=== PATIENT | male | born 1995 | race Hispanic/Latino ===

== ENCOUNTER 2022-02-23 15:16 | Emergency (ER) | payer OTHER, BC, SELFPAY ==
--- NOTE | ~2022-02-23 | XR_ITS ---
XR knee LT 3V 02/23/2022 17:03 Indication: Left knee pain and swelling Procedure: 3 views left knee Comparison: No prior studies for comparison. Findings: There is a possible tibial plateau fracture no other fracture is seen. No foreign bodies. L arge joint effusion. There is anatomic alignment. Impression: 1: Possible tibial plateau fracture. Recommend correlation with CT. 2: Large joint effusion. Reviewed, dictated and finalized at location A. Impression: 1: Possible tibial plateau fracture. Recommend correlation with CT. 2: Large joint effusion.
[2022-02-23 15:18] VITALS: BP 132/109; PULSE 84; RESP 18; TEMP 36.8; O2SAT 100
--- NOTE | 2022-02-23 16:26 | ED.LOWEXIN ---
HPI - Extremity Injury (Lower) General Chief Complaint: Extremity Injury, Lower Stated Complaint: left knee injury Time Seen by Provider: 02/23/22 16:18 History of Present Illness HPI Narrative: 26 y/o male presents to the ER today for complaints of left knee pain and swelling. He stepped on uneven surface 2 days ago and his knee twisted and he fell. He was seen at an ER in [place]. Xray was done that showed a tibial plateau fracture. A CT was also done that showed the fracture and was concerning for ACL injury and large joint effusion/hemorrhage. He was not able to get in with the ortho that they told him to see because they did not take his insurance. He is needing help getting into an ortho provider for follow up. He has been taking ibuprofen with minimal pain relief. Related Data Allergies Allergy/AdvReac Type Severity Reaction Status Date / Time No Known Allergies Allergy Verified 02/23/22 16:12 Review of Systems Constitutional: Constitutional: Denies chills and Denies fever(s) Eyes: Eyes: Reports no additional eye complaints ENT: Denies dysphagia, Denies dizziness and Denies sore throat Cardiovascular: Cardiovascular: Denies chest pain Respiratory: Respiratory: Denies chest congestion, Denies cough, Denies dyspnea and Denies wheezing Gastrointestinal: Gastrointestinal: Denies abdominal pain, Denies diarrhea, Denies nausea and Denies vomiting Genitourinary: Genitourinary: Reports no additional male genitourinary complaints Musculoskeletal: Musculoskeletal: Reports arthralgias and Reports joint swelling Integumentary/Breasts: Skin/Breast: Denies rash Neurologic: Denies vertigo, Denies dizziness, Denies syncope, Denies headache(s), Denies focal weakness and Denies numbness Psychiatric: Psychiatric: Denies anxiety and Denies depression Endocrine: Endocrine: Reports no additional endocrine complaints Hematologic/Lymphatic: Hematologic/Lymphatic: Reports no additional hematologic/lymphatic complaints Allergic/Immunologic: Allergic/Immunologic: Reports no additional allergic/immunologic complaints and Denies wheezing Exam Const: General: no acute distress Orientation/consciousness: patient oriented x3 Eyes: Conjunctivae: conjunctivae normal Neck: Neck: normal visual inspection Chest: Chest palpation & inspection: normal inspection of the chest Resp: Effort & Inspection: normal respiratory effort Auscultation: clear to auscultation bilaterally, no rales, no rhonchi and no wheezes Cardio: Rate: regular rate Rhythm: regular rhythm GI: GI Palp: Yes Soft to palpation, No Tenderness to palpation present (GI) and No Guarding due to palpation present (GI) Skin: General skin exam: normal color Rashes: rash noted Neuro: General: patient oriented x3 and no focal motor deficits Extrem: Other: Left knee with moderate swelling, grossly tender to palpation, limited ROM due to pain, difficult exam but joint instability not appreciated. Psych: Mental Status: mental status grossly normal Affect: normal affect Course Course Emergency Course: 1640 Discussed with ortho, Dr. Penn. He is agreeable to see patient for follow up in office. He would like patient to have a baseline xray done today in our ER prior to leaving. Vital Signs Vital signs: Vital Signs Temperature 36.8 C 02/23/22 15:18 Pulse Rate 84 02/23/22 15:18 Respiratory Rate 18 02/23/22 15:18 Blood Pressure 132/109 H 02/23/22 15:18 Pulse Oximetry 100 02/23/22 15:18 Temperature 36.8 C 02/23/22 15:18 Pulse Rate 84 02/23/22 15:18 Respiratory Rate 18 02/23/22 15:18 Blood Pressure 132/109 H 02/23/22 15:18 Pulse Oximetry 100 02/23/22 15:18 MDM - Extremity Injury (Lower) Imaging Data Radiologist's impression: XR knee LT 3V 02/23/2022 17:03 Indication: Left knee pain and swelling Procedure: 3 views left knee Comparison: No prior studies for comparison. Findings: There is a possible tibial plateau fracture n
[2022-02-23] MEDS: HYDROcodone/acetaminophen (*CRX) 5-325 MG TABLET 2 TAB PO (16:51)
== END 2022-02-23 18:13 | disposition home or self-care (01) ==
PROVIDERS: Emergency Provider Nurse Practitioner Family
DX: S82.142A Displaced bicondylar fracture of left tibia, initial encounter for closed fracture (principal); X50.9XXA Other and unspecified overexertion or strenuous movements or postures, initial encounter; W01.0XXA Fall on same level from slipping, tripping and stumbling without subsequent striking against object, initial encounter
CPT/HCPCS: 73562; 99284; A9270